=== PATIENT | female | born 1960 | race Caucasian/White ===

== ENCOUNTER 2019-09-15 19:26 | Emergency (ER) | payer BC, SELFPAY ==
--- NOTE | ~2019-09-15 | XR_ITS ---
EXAMINATION: XR chest 2V 09/15/2019 20:06 INDICATION: Cough with wheezing. Positive flu. PROCEDURE: 2 view chest COMPARISON: FINDINGS: The lungs are clear. The cardiomediastinal silhouette is within normal limits. There are no pleural effusions. There is no pneumothorax suspected. There is scoliosis. IMPRESSION: 1: NO ACUTE CARDIOPULMONARY DISEASE. Reviewed, dictated and finalized at location A. [employer]
[2019-09-15 19:41] VITALS: BP 104/63; PULSE 108; RESP 20; TEMP 37.8; O2SAT 94
--- NOTE | 2019-09-15 19:53 | ED.GENADULT ---
HPI - General Adult General Chief complaint: Upper Respiratory Infection Stated complaint: head congestion Time Seen by Provider: 09/15/19 19:53 Source: patient and RN notes reviewed Mode of arrival: ambulatory Limitations: no limitations History of Present Illness HPI narrative: This is a 59 female presents to the office for shortness of breathe today. 3 days ago she began with cough, headache, stuffy nose, and scratchy throat. Today she is very short of breath especially on exertion. Admits to history of asthma induced by environmental. She has been using her albuterol inhaler with no relief. She did receive influenza vaccine for the season. She does not smoke. Related Data Home Medications Medication Instructions Recorded Confirmed albuterol sulfate 1 inh INHALATION Q4-6H PRN 09/15/19 09/15/19 Allergies Allergy/AdvReac Type Severity Reaction Status Date / Time No Known Allergies Allergy Verified 09/15/19 19:50 Review of Systems Review of Systems: Narrative: CONSTITUTIONAL: Reports fever, chills ENT: Reports rhinorrhea, congestion, sore throat CARDIOVASCULAR: Denies chest pain RESPIRATORY: Reports dyspnea, wheezing, cough GASTROINTESTINAL: Denies abdominal pain, nausea, vomiting GENITOURINARY: Denies urinary symptoms or discharge SKIN: Denies rash MUSCULOSKELETAL: Denies acute back pain NEUROLOGIC: Denies lightheaded PMFSH Past Medical History Medical History Asthma Comments At time of signature, I agree with nursing past medical, surgical, social and family history. There is no relevant family history pertinent to the presenting complaint. Exam Narrative: Exam Narrative: GENERAL: This is a well-nourished, well-developed patient, mild distress EYES: Sclera clear/white. Vision is grossly intact. EARS: External ears normal, auditory canals clear and without drainage, TMs normal without perforation. Hearing grossly intact. NOSE: External nose normal with no obvious nasal discharge, nares without redness, no rhinorrhea. THROAT: Mucous membranes moist, posterior pharynx clear. NECK: Neck supple, non-tender without lymphadenopathy, masses or thyromegaly. CARDIOVASCULAR: Regular rate and rhythm without murmurs, gallops, or rubs. RESPIRATORY: Tachypnea (24), wheezing noted throughout with inspiration and expiration. Breath sounds equal bilaterally. No use of accessory muscle or pulse lip breathing. GASTROINTESTINAL: Abdomen soft, non-tender, nondistended. Bowel sounds are active. No hepato-splenomegaly, or palpable masses. No guarding. SKIN: warm, intact with no suspicious lesions or rash, good texture and turgor. NEURO: awake, alert, and oriented to person, place and time. There were no obvious focal neurologic abnormalities. Steady gait [place] Coma Scale Eye Opening: Spontaneous 4 [place] Coma Scale Motor: Obeys Commands 6 [place] Coma Scale Verbal: Oriented 5 Course Reevaluation(s) Reevaluation #1: Post nebulizer treatment patient report feeling about the same however she can take a deeper breath. Wheezing noted with expiratory. Time: 20:40 Vital Signs Vital signs: Vital Signs Temperature 100.0 F H 09/15/19 19:41 Pulse Rate 108 H 09/15/19 19:41 Respiratory Rate 20 09/15/19 19:41 Blood Pressure 104/63 09/15/19 19:41 Pulse Oximetry 94 09/15/19 19:41 Temperature 100.0 F H 09/15/19 19:41 Pulse Rate 108 H 09/15/19 19:41 Respiratory Rate 20 09/15/19 19:41 Blood Pressure 104/63 09/15/19 19:41 Pulse Oximetry 94 09/15/19 19:41 Medical Decision Making MDM Narrative Medical decision making narrative: Discharge instructions reviewed with patient, as well as provided in writing per nursing staff. The instructions also include specific and strict return/GO TO THE ER as well as f/u information. All questions have been answered, and the patient deny any further questions with discharge and discharge plan. Differentia
[2019-09-15] MEDS: ALBUTEROL SULFATE NEB 2.5 MG/3 ML INH INHALATION (20:09)
[2019-09-15] MEDS: IPRATROPIUM BR 0.02% INH SOLN 0.5 MG/2.5 ML VIAL INHALATION (20:10)
[2019-09-15 20:35] VITALS: PULSE 100; RESP 20; O2SAT 94
== END 2019-09-15 20:50 | disposition home or self-care (01) ==
PROVIDERS: Emergency Provider Nurse Practitioner; PCP Internal Medicine
DX: J10.1 Influenza due to other identified influenza virus with other respiratory manifestations (principal); J45.41 Moderate persistent asthma with (acute) exacerbation
CPT/HCPCS: 71046; 87804; 94640; 99203; G0463